=== PATIENT | female | born 1955 | race Caucasian/White ===

== ENCOUNTER 2016-12-22 19:17 | Emergency (ER) | payer MEDICARE ==
[2016-12-22 19:30] VITALS: BP 133/75
--- NOTE | 2016-12-22 19:37 | UC ---
Minor Trauma HPI - HPI Summary HPI Summary: 61 YEAR OLD FEMALE PRESENTS WITH COMPLAINS OF RIGHT ELBOW, HAND, AND WRIST PAIN AFTER A FALL. - History of Current Complaint Chief Complaint: UCTrauma Stated Complaint: ARM,HIP INJURIES FROM FALL Time Seen by Provider: 12/22/16 19:37 Hx Obtained From: Patient Onset/Duration: Sudden Onset Severity Initially: Moderate Severity Currently: Moderate Pain Scale Used: 0-10 Numeric - 6 Mechanism Of Injury: Fall From A Standing Position Aggravating Factor(s): Movement Alleviating Factor(s): Elevation Associated Signs And Symptoms: Positive: Swelling - Allergies/Home Medications Allergies/Adverse Reactions: Allergies Allergy/AdvReac Type Severity Reaction Status Date / Time Amoxicillin Allergy Intermediate Hives Verified 12/22/16 19:30 Minocycline Allergy Intermediate Rash Verified 12/22/16 19:30 Home Medications: Home Medications Lisinopril TAB* [Prinivil TAB*] 5 mg PO DAILY 12/22/16 [History Confirmed ] Tocilizumab [Actemra] 162 mg SC 12/22/16 [History] PMH/Surg Hx/FS Hx/Imm Hx Previously Healthy: Yes - Surgical History Surgical History: Yes Surgery Procedure, Year, and Place: HYSTERECTOMY. right hip - Social History Alcohol Use: None Substance Use Type: None, Prescribed Smoking Status (MU): Never Smoked Tobacco Review of Systems Constitutional: Negative Skin: Negative Eyes: Negative ENT: Negative Respiratory: Negative Cardiovascular: Negative Gastrointestinal: Negative Genitourinary: Negative Motor: Negative Neurovascular: Negative Musculoskeletal: Other: - RIGHT ELBOW, HAND, AND WRIST Neurological: Negative Psychological: Negative All Other Systems Reviewed And Are Negative: Yes Physical Exam Triage Information Reviewed: Yes Vital Signs: Initial Vital Signs Temp 36.6 C 12/22/16 19:24 Pulse 81 12/22/16 19:24 Resp 20 12/22/16 19:24 BP 133/75 12/22/16 19:24 Pulse Ox 98 12/22/16 19:24 Eye Exam: Normal ENT Exam: Normal Dental Exam: Normal Neck exam: Normal Neck: Positive: 1 Respiratory Exam: Normal Cardiovascular Exam: Normal Abdominal Exam: Normal Musculoskeletal: Positive: Other: - RIGHT ELBOW, HAND, AND WRIST SWELLING/PAIN Neurological Exam: Normal Psychological Exam: Normal Skin Exam: Normal Minor Trauma Course/Dx - Differential Dx/Diagnosis Provider Diagnoses: RIGHT ELBOW, HAND, AND WRIST SWELLING/PAIN Discharge - Discharge Plan Condition: Stable Disposition: HOME Prescriptions: Mupirocin 2% OINT* [Bactroban 2 % Oint*] 1 applic TOPICAL BID #1 tube Referrals: Georgiana Fragoso MD [Primary Care Provider] -
--- NOTE | 2016-12-22 20:05 | RAD ---
HISTORY: Fall on outstretched hand , elbow pain COMPARISONS: None VIEWS: 4, Frontal, lateral, and oblique views of the right elbow FINDINGS: BONE DENSITY: Normal. BONES: There is no displaced fracture. JOINTS: There is no arthropathy. There is no posterior supracondylar fat pad to suggest a joint effusion. There is ALIGNMENT: There is no dislocation. SOFT TISSUES: Unremarkable. OTHER FINDINGS: None. IMPRESSION: NO ACUTE OSSEOUS INJURY. IF SYMPTOMS PERSIST, RECOMMEND REPEAT IMAGING.
--- NOTE | 2016-12-22 20:06 | RAD ---
HISTORY: Fall on outstretched hand, hand pain COMPARISONS: November 23, 2016 VIEWS: 4, Frontal, lateral, and oblique views of the right hand FINDINGS: BONE DENSITY: There is diffuse osteopenia. BONES: There is no displaced fracture. JOINTS: There is osteoarthritis of the first CMC joint, radial carpal articulation, interphalangeal joints, and first MCP joint. ALIGNMENT: There is no dislocation. SOFT TISSUES: Unremarkable. OTHER FINDINGS: None. IMPRESSION: 1. OSTEOPENIA. 2. ADVANCED OSTEOARTHRITIS. 3. NO ACUTE OSSEOUS INJURY. THE DEGREE OF OSTEOPENIA MAY MAKE A NONDISPLACED FRACTURE RADIOGRAPHICALLY OCCULT. IF SYMPTOMS PERSIST, RECOMMEND REPEAT IMAGING.
--- NOTE | 2016-12-22 20:09 | RAD ---
HISTORY: Fall on outstretched hand, pain COMPARISONS: None VIEWS: 3, Frontal, lateral, and oblique views of the right wrist FINDINGS: BONE DENSITY: There is diffuse osteopenia. BONES: There is remote posttraumatic deformity to the distal ulna. JOINTS: There is advanced osteoarthritis of the carpus and radiocarpal and ulnar-carpal articulations. ALIGNMENT: There is no dislocation. SOFT TISSUES: Unremarkable. OTHER FINDINGS: None. IMPRESSION: OSTEOPENIA. ADVANCED OSTEOARTHRITIS. NO ACUTE OSSEOUS INJURY. THE DEGREE OF OSTEOPENIA MAY MAKE A NONDISPLACED FRACTURE RADIOGRAPHICALLY OCCULT. IF SYMPTOMS PERSIST, RECOMMEND REPEAT IMAGING.
== END 2016-12-22 20:23 | disposition home or self-care (01) ==
LOC: UCEAST 19:17
DX: M25.521 Pain in right elbow (principal); M79.641 Pain in right hand; M25.531 Pain in right wrist; M25.431 Effusion, right wrist; Z88.1 Allergy status to other antibiotic agents; Z90.710 Acquired absence of both cervix and uterus
CPT/HCPCS: 99213; G0463

== ENCOUNTER 2018-10-05 12:22 | Emergency (ER) | payer MEDICARE, MEDICAID ==
[2018-10-05 12:35] VITALS: BP 135/72
--- NOTE | 2018-10-05 12:55 | UC ---
Respiratory Complaint HPI - HPI Summary HPI Summary: One week of worsening cough. - History of Current Complaint Chief Complaint: UCRespiratory Stated Complaint: COUGH Time Seen by Provider: 10/05/18 12:30 Hx Obtained From: Patient Pain Intensity: 4 Pain Scale Used: 0-10 Numeric Aggravating Factors: Nothing Alleviating Factors: Nothing Associated Signs And Symptoms: Positive: Wheezing. Negative: Dyspnea - Allergies/Home Medications Allergies/Adverse Reactions: Allergies Allergy/AdvReac Type Severity Reaction Status Date / Time amoxicillin Allergy Hives Verified 10/05/18 12:35 minocycline Allergy Rash Verified 10/05/18 12:35 Home Medications: Home Medications Atorvastatin* [Lipitor*] 20 mg PO DAILY 10/05/18 [History Confirmed 10/05/18] Fluticasone NASAL SPRAY 50MCG* [Flonase NASAL SPRAY 50MCG*] 2 spray BOTH NARES DAILY 10/05/18 [History Confirmed 10/05/18] metFORMIN* [Glucophage 500 MG TAB *] 500 mg PO DAILY 10/05/18 [History Confirmed 10/05/18] PMH/Surg Hx/FS Hx/Imm Hx Endocrine History: Diabetes Cardiovascular History: Cardiac Disease GI/ History: Gastroesophageal Reflux - Surgical History Surgical History: Yes Surgery Procedure, Year, and Place: HYSTERECTOMY. right hip - Family History Known Family History: Positive: Other - cancer - Social History Alcohol Use: None Substance Use Type: None Smoking Status (MU): Never Smoked Tobacco Review of Systems All Other Systems Reviewed And Are Negative: Yes Constitutional: Positive: Chills. Negative: Fever Skin: Negative: Rash ENT: Positive: Sinus Congestion - with post nasal drip. Negative: Sore Throat Physical Exam Vital Signs: Initial Vital Signs Temp 97.2 F 10/05/18 12:29 Pulse 88 10/05/18 12:29 Resp 18 10/05/18 12:29 BP 135/72 10/05/18 12:29 Pulse Ox 96 10/05/18 12:29 Diagnostics - Radiology No standard instances Radiology Interpretation Completed By: Radiologist Summary of Radiographic Findings: IMPRESSION: 1. OVERLYING THE RIGHT LOWER LUNG IS A NEW 1.1 CM WELL-CIRCUMSCRIBED DENSITY THAT WAS NOT. IDENTIFIED ON THE JUNE 27, 2017 CHEST X-RAY. THE CLINICAL SIGNIFICANCE OF THIS IS. INDETERMINANT. 2. THE LUNGS ARE OTHERWISE GROSSLY CLEAR. Respiratory Course/Dx - Course Course Of Treatment: Cough started a few days ago after she noticed some post nasal drip. She was concerned it was something else when she noticed wheezing for which she has been using albuterol. Of note is taking immunosuppresants for RA. Coughing is sporadic and nothing makes it better/worse. On exam there was some rales heard in R field. CXR did not show any conslidation but there was a new density noted. Vitals good. For now will tx her cough w/ zpack to cover infectious source, could be viral as well. Post nasal drip can also cause cough so have asked her to take flonase BID. She will follow up with her pcp to obtain CT for the new density found on today's CXR. - Differential Dx/Diagnosis Differential Diagnosis/HQI/PQRI: Bronchitis, CHF, Tuberculosis Provider Diagnosis: Abnormal x-ray, Cough Discharge - Sign-Out/Discharge Documenting (check all that apply): Patient Departure All imaging exams completed and their final reports reviewed: Yes - Discharge Plan Condition: Good Disposition: HOME Prescriptions: Azithromyxin SHASHI (NF) [Z-Shashi (Zithromax) 250 mg tabs #6] 2 tab PO .TODAY, THEN 1 DAILY 5 Days #6 tab Patient Education Materials: Acute Cough (ED) Referrals: Georgiana Fragoso MD [Primary Care Provider] - Additional Instructions: I think your symptoms may be from post nasal drip or perhaps an infectious source for which I'm treating you with antibiotics. But because the XRAY was abnormal I'd like you to follow up with your primary care very soon. - Billing Disposition and Condition Condition: GOOD Disposition: Home
== END 2018-10-05 13:53 | disposition home or self-care (01) ==
LOC: UCEAST 12:22
DX: R91.8 Other nonspecific abnormal finding of lung field (principal); R05 Cough
CPT/HCPCS: 71046; 99212; G0463

== ENCOUNTER → 2018-11-29 14:23 | Emergency (ER) | payer MEDICARE, MEDICAID ==
[~2018-11-29 14:23] MED LIST: Ketorolac INJ* 30 MG/ML 1 ML VIAL IV ONE; Levofloxacin TAB* 250 MG PO ONE; Morphine 4 MG/ML VIAL (1 ml) 4 MG/ML VIAL IV ONE; NS 0.9% 1000 ML** 1,000 ML IV ONE; Ondansetron INJ* 2 MG/ML VIAL IV ONE; Tamsulosin CAP* 0.4 MG PO ONE
--- NOTE | 2018-11-29 14:52 | ED ---
GI/ HPI - HPI Summary HPI Summary: Patient is a 63 y/o F presenting to ED with complaints of bilateral flank pain that is more severe on the left, nausea, and hematuria. Vomiting is denied. She states that she has been having intermittent episodes of pain, but today, since this morning, pain has been more severe and constant. On triage, pain is rated 7 /10, nothing is noted to aggravate/alleviate Sx. She states that she had a UA done and claims there was protein and blood noted in urine. She notes that she had recent UTI. Patient is not on blood thinners. She is scheduled for ultrasound in the next four days. Home medications and allergies are reviewed. - History of Current Complaint Chief Complaint: EDFlankPain Time Seen by Provider: 11/29/18 14:34 Stated Complaint: LOW BACK PAIN PER PT Hx Obtained From: Patient Onset/Duration: Still Present, Worse Since - this morning Timing: Constant - since this morning, Intermittent - past few days Severity: Severe Current Severity: Severe Pain Intensity: 7 Location of Pain: Flank - bilateral Associated Signs and Symptoms: Positive: Nausea, Hematuria, Flank Pain - bilateral. Negative: Vomiting Aggravating Factor(s): Nothing Alleviating Factor(s): Nothing - Allergy/Home Medications Allergies/Adverse Reactions: Allergies Allergy/AdvReac Type Severity Reaction Status Date / Time minocycline Allergy Rash Verified 11/29/18 14:32 PMH/Surg Hx/FS Hx/Imm Hx Endocrine/Hematology History: Reports: Hx Diabetes - type 2 dm Cardiovascular History: Reports: Hx Hypertension Musculoskeletal History: Reports: Hx Rheumatoid Arthritis, Hx Osteoporosis - Cancer History Hx Chemotherapy: No Hx Radiation Therapy: No - Surgical History Surgery Procedure, Year, and Place: HYSTERECTOMY. right hip Infectious Disease History: No Infectious Disease History: Denies: Traveled Outside the [place] in Last 30 Days - Family History Known Family History: Positive: Other - cancer - Social History Alcohol Use: None Substance Use Type: Reports: None Smoking Status (MU): Never Smoked Tobacco Review of Systems Positive: Nausea. Negative: Vomiting Positive: flank pain - bilateral , hematuria All Other Systems Reviewed And Are Negative: Yes Physical Exam - Summary Physical Exam Summary: Appearance: Well appearing, no pain distress Skin: warm, dry, reflects adequate perfusion Head/face: normal Eyes: EOMI, ANDRY ENT: normal Neck: supple, non-tender Respiratory: CTA, breath sounds present Cardiovascular: RRR, pulses symmetrical Abdomen: tenderness at left flank area noted, soft Musculoskeletal: normal, strength/ROM intact Neuro: normal, sensory motor intact, A&Ox3 Triage Information Reviewed: Yes Vital Signs On Initial Exam: Initial Vitals Temp Pulse Resp BP Pulse Ox 98.7 F 84 19 168/105 99 11/29/18 14:29 11/29/18 14:29 11/29/18 14:29 11/29/18 14:29 11/29/18 14:29 Vital Signs Reviewed: Yes Diagnostics - Vital Signs Vital Signs Temp Pulse Resp BP Pulse Ox 11/29/18 14:29 98.7 F 84 19 168/105 99 - Laboratory Result Diagrams: 11/29/18 15:23 11/29/18 15:23 Lab Statement: Any lab studies that have been ordered have been reviewed, and results considered in the medical decision making process. - CT CT ABD/PEL CT Interpretation Completed By: Radiologist Summary of CT Findings: IMPRESSION: 1. At the left hilum there is a 7 mm calcification with ipsilateral left-sided. hydronephrosis. 2. There are 2 hyperattenuating cyst in the left kidney that can be further characterized. This report is only to be considered final once signed by the Provider(s) as displayed in the. with a nonemergent ultrasound. 3. There are additional chronic, degenerative and iatrogenic findings described in the. body the report that are unlikely related to the patient's current presentation. THIS REPORT WAS REVIEWED BY DR. LINK. Re-Evaluation - Re-Evaluation First Eval Re-Evaluation Time: 17:26 Comment: Results of labs and tests were discussed with the patient. Patient reports that she wants to be discharged to home with antibiotics. She states she will follow up with PCP and urologist within three days. Strict return precautions given, advised to return if she develops a fever, chills, or worsening of symptoms. Patient understands and agrees. GIGU Course/Dx - Course Course Of Treatment: Patient is a 63 y/o F presenting to ED with complaints of bilateral flank pain that is more severe on the left, nausea, and hematuria. Vomiting is denied. She states that she has been having intermittent episodes of pain, but today, since this morning, pain has been more severe and constant. On triage, pain is rated 7/10, nothing is noted to aggravate/alleviate Sx. She states that she had a UA done and claims there was protein and blood noted in urine. She notes that she had recent UTI. Patient is not on blood thinners. On physical exam, left flank tenderness is noted. Bloodwork and UA obtained. During ED course, patient received fluids, Zofran 4 mg IV, morphine 4 mg IV, and toradol [address] ABD/PEL IMPRESSION: 1. At the left hilum there is a 7 mm calcification with ipsilateral left-sided. hydronephrosis. 2. There are 2 hyperattenuating cyst in the left kidney that can be further characterized. This report is only to be considered final once signed by the Provider(s) as displayed in the. with a nonemergent ultrasound. 3. There are additional chronic, degenerative and iatrogenic findings described in the. body the report that are unlikely related to the patient's current presentation. Results of labs and tests were discussed with the patient. Patient reports that she wants to be discharged to home with antibiotics. She states she will follow up with PCP and urologist within three days. Strict return precautions given, advised to return if she develops a fever, chills, or worsening of symptoms. Patient understands and agrees. pt refused to be transferred to a different hospital for urology services said she will try abx and see urologist on saturday. - Diagnoses Differential Diagnoses - Female: Diverticulitis, Renal Colic, Urinary Tract Infection, Ureteral Calculi Provider Diagnoses: Renal calculi, UTI (urinary tract infection), History of diabetes mellitus Discharge - Sign-Out/Discharge Documenting (check all that apply): Patient Departure - discharge Patient Received Moderate/Deep Sedation with Procedure: No - Discharge Plan Condition: Stable Disposition: HOME Prescriptions: Levofloxacin TAB* [Levaquin TAB*] 750 mg PO DAILY #6 tab Tamsulosin HCl [Flomax] 0.4 mg PO ONCE #14 cap.er.24h Patient Education Materials: Kidney Stones (ED), Urinary Tract Infection in Women (ED) Referrals: Georgiana Fragoso MD [Primary Care Provider] - 3 Days Norm Myles MD [Medical Doctor] - 3 Days Additional Instructions: PLEASE RETURN TO ED FOR ANY NEW OR WORSENING SYMPTOMS. FOLLOW-UP WITH YOUR PRIMARY CARE PHYSICIAN AND UROLOGIST WITHIN THREE DAYS. - Billing Disposition and Condition Condition: STABLE Disposition: Home - Attestation Statements Document Initiated by Joseibnadira: Yes Documenting Scribe: TASHA ROMERO Provider For Whom Scribe is Documenting (Include Credential): ZOILA LINK MD Scribe Attestation: ITASHA, scribed for ZOILA LINK MD on 11/29/18 at 1808. Scribe Documentation Reviewed: Yes Provider Attestation: The documentation as recorded by the TASHA davey accurately reflects the service I personally performed and the decisions made by me, ZOILA LINK MD Status of Scribe Document: Viewed
[2018-11-29 15:29] LABS: ABS Eosinophils 0.2 10^3/ul (0-0.6); ABS Lymphocytes 2.4 10^3/ul (1.0-4.8); ABS Monocytes 0.7 10^3/ul (0-0.8); ABS Neutrophils 4.4 10^3/ul (1.5-7.7); Eosinophil % 2.5 %; Hematocrit 39 % (35-47); Hemoglobin 13.3 g/dL (12.0-16.0); Lymphocyte % 31.3 %; Mean Corpuscular HGB Conc 34 g/dL (31-36); Mean Corpuscular Hemoglobin 31 pg (27-31); Mean Corpuscular Volume 89 fL (80-97); Platelet Count 201 10^3/uL (150-450); Red Blood Count 4.33 10^6 /uL (3.70-4.87); Red Cell Distribution Width 13 % (10-15); White Blood Count 7.8 10^3/uL (3.5-10.8)
--- OUTSIDE RECORDS SUMMARY | 2018-11-29 15:33 | XMS REPORT | Continuity of Care Document ---
:1955 External Reference #:[id number] Author Name Sobia Haji O.D. Address [address] [place] [address] Care Team Providers Name Role Phone Georgiana Fragoso M.D. Primary Care Physician Unavailable Payers Date Identification Numbers Payment Provider Subscriber Policy Number: [id number] Medicare - [facility] Nupur Ochoa PayID: [id number] [address] [place] [address] Policy Number: [id number] Medicaid Nupur Ochoa PayID: [id number] [address] [place] [address] Problems Active Problems Provider Date Rheumatoid arthritis Onset: Type 2 diabetes mellitus Onset: Essential hypertension Onset: Reflux Onset: Sleep apnea Onset: Taking medication Niru Rivera O.D. Onset: 09/21/2014 Ocular hypertension Niru Rivera O.D. Onset: 09/21/2014 Nuclear senile cataract Niru Rivera O.D. 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 Onset: 08/23/2015 Combined form of senile cataract Niru Rivera O.D. Onset: 08/23/2015 Presbyopia Sobia Haji O.D. Onset: 01/08/2018 Bilateral primary open angle glaucoma Sobia Haji O.D. 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 night Coq10 Unknown 100mg Capsules Metformin HCL Unknown 500mg Tablets Actemra Ankur, Zsofia 162mg/0.9ML Soln Prefill APPLICATION RELEASE MANAGER Syringe Lisinopril [place] Georgiana 2.5mg Tablets M.D. Calcium 1200 daily Unknown [id number] Chewtabs Glucosamine Sulfate Unknown Maximum Potency 1000mg Capsules Tramadol HCL Take 1 Tablet Unknown 50mg Tablets By Mouth 4 Times A Day as Needed Omeprazole Take One Unknown 20mg Capsules DR Capsule By Mouth Every Day Vitamin D (Ergocalciferol) Take One Unknown Capsule By [id number] Capsules Mouth Once A Month Fluoxetine HCL Simbafarhat Georgiana 20mg Capsules M.D. Hydroxychloroquine Sulfate Ankur, Zsofia 200mg APPLICATION RELEASE MANAGER Tablets Meloxicam Ankur, Zsofia 7.5mg Tablets APPLICATION RELEASE MANAGER History Medications Co Q 10 Niru Rivera, 08/22/2015 - ?mg Capsules O.D. Unknown Hydrochlorothiazide Simbafarhat Georgiana - 12.5mg Tablets M.D. 09/22/2016 Humira Pen Ankur, Zsofia - 40mg/0.8ML PNKT APPLICATION RELEASE MANAGER 03/30/2017 Econazole Nitrate Apply To Affected Unknown - 1% Cream Toes Twice A Day 08/22/2015 Multi Vitamin Daily Unknown - Tablets Unknown Multivital Unknown - Tablets 02/21/2016 Nasonex Unknown - 50mcg/Act Suspension Unknown Lipitor Unknown - 10mg Tablets 04/25/2018 Procedures Date Code Description Status 08/14/2018 70537 Est Patient Intermediate Exam Completed 05/29/2018 79709 Scanning Computerized Ophthalmic Diagnostic Imag Posterior Completed Seg On 05/29/2018 07864 Est Patient Intermediate Exam Completed 05/02/2018 31409 Est Patient Intermediate Exam Completed 01/08/2018 23707 Determination Of Refractive State Completed 10/28/2017 67378 Scanning Computerized Opthalmic Diagnostic Posterior Seg Completed Retina 10/28/2017 30458 Visual Field Exam Extended Completed 10/28/2017 76669 Gonioscopy Completed 10/28/2017 69650 Est Patient Comprehensive Exam Completed 04/01/2017 08159 Est Patient Comprehensive Exam Completed 04/01/2017 82018 Visual Field Exam Extended Completed 04/01/2017 80620 Scanning Computerized Ophthalmic Diagnostic Imag Posterior Completed Seg On 09/27/2016 30903 Scanning Computerized Opthalmic Diagnostic Posterior Seg Completed Retina 09/27/2016 37543 Est Patient Comprehensive Exam Completed 02/22/2016 62820 Visual Field Exam Extended Completed 02/22/2016 70428 Est Patient Comprehensive Exam Completed 08/23/2015 03359 Est Patient Comprehensive Exam Completed 09/21/2014 65510 Est Patient Comprehensive Exam Completed 09/21/2014 35811 Visual Field Exam Extended Completed 03/22/2014 37675 Determination Of Refractive State Completed 03/22/2014 75756 Est Patient Comprehensive Exam Completed 06/23/2013 59203 Est Patient Comprehensive Exam Completed 12/19/2012 98550 Determination Of Refractive State Completed 12/19/2012 20109 Est Patient Comprehensive Exam Completed 06/20/2012 09480 Est Patient Intermediate Exam Completed 12/18/2011 22893 Est Patient Comprehensive Exam Completed 12/23/2010 67015 Determination Of Refractive State Completed 12/23/2010 73004 Est Patient Comprehensive Exam Completed 12/23/2010 57933 Pachymetry Completed 12/14/2008 66380 Determination Of Refractive State Completed 12/14/2008 74550 Est Patient Comprehensive Exam Completed 06/16/2008 28573 Est Patient Intermediate Exam Completed 12/15/2007 43007 Determination Of Refractive State Completed 12/15/2007 47940 New Patient Comprehensive Exam Completed Encounters Type Date Location Provider Dx Diagnosis Office Visit 06/24/2009 Niru Partida, V58.69 Medications Long 11:00a , pc O.Delfino Term (Current) Use Encounter 714.0 Rheumatoid Arthritis Plan of Treatment 11/27/2018 - Sobia Haji O.D.H40.1131 Primary open-angle glaucoma, bilateral, mild stageComments:Your glaucoma is stable at this time.Your eye pressure is within an acceptable range, and your testing does not show any Glaucoma related changes at this time. Please continue your treatment.Follow up: 4 Month Follow Up OCT ON Visual Field, 30-2 You can expect to have your eyes dilated at your next visit. If Dr. Haji orders any additional testing, it may require extra time. We recommend that youbring sunglasses, as dilation drops often make you light sensitive until they wear off. We always recommend you bring someone to drive you home if you are uncomfortable driving with your eyes dilated. If you have any questions before your next visit, feel free to call our office at .
[2018-11-29 15:38] LABS: Activated Partial Thrombo Time 29.5 seconds (26.0-38.0); INR 0.95 (0.82-1.09)
[2018-11-29 15:44] LABS: Urine Appearance Clear; Urine Bacteria Absent (Absent); Urine Bilirubin Negative (Negative); Urine Blood 3+ (Negative); Urine Color Yellow; Urine Glucose Negative (Negative); Urine Ketones Negative (Negative); Urine Nitrite Negative (Negative); Urine Protein 1+(30 mg/dL) (Negative); Urine Red Blood Cell 3+(>10/hpf) (Absent); Urine Specific Gravity 1.018 (1.010-1.030); Urine Squamous Epithelial Cell Present (Absent); Urine Urobilinogen Negative (Negative); Urine White Blood Cell 3+(>20/hpf) (Absent)
[2018-11-29 15:49] LABS: Albumin 4.4 g/dL (3.2-5.2); Albumin/Globulin Ratio 1.7 (1-3); BUN/Creatinine Ratio 20.7 (8-20); Calcium 9.3 mg/dL (8.6-10.3); EGFR African American 60.5 (>60); Globulin 2.6 g/dL (2-4); Potassium 3.9 mmol/L (3.5-5.0); Total Bilirubin 0.8 mg/dL (0.2-1.0)
[2018-11-29 19:49] VITALS: BP 148/94
== END | disposition home or self-care (01) ==
LOC: ED 14:23
DX: N13.2 Hydronephrosis with renal and ureteral calculous obstruction (principal); N39.0 Urinary tract infection, site not specified; E11.9 Type 2 diabetes mellitus without complications; I10 Essential (primary) hypertension; M06.9 Rheumatoid arthritis, unspecified; Z88.1 Allergy status to other antibiotic agents; N28.1 Cyst of kidney, acquired
CPT/HCPCS: 36415; 74176; 80053; 81003; 81015; 83605; 83690; 85025; 85610; 85730; 87086; 96361; 96374; 96375; 99282; A9270-GY; J1885; J2270; J2405

== ENCOUNTER 2018-12-01 02:11 | Emergency (ER) | payer MEDICARE, MEDICAID ==
[2018-12-01] MEDS ORDERED: Morphine 4 MG/ML VIAL (1 ml) 4 MG/ML VIAL IM ONE (02:34)
[2018-12-01] MEDS ORDERED: PROCHLORPERAZINE INJ 5 MG/ML 2 ML VIAL IM ONE (02:34)
--- NOTE | 2018-12-01 02:44 | ED ---
GI/ HPI - HPI Summary HPI Summary: This pt is a 63 y/o F presenting to [facility] with a CC of L flank pain that has been worsening since 2912/01/18. She states that the pain started at around 199911/30/18 and progressively gotten worse. She states that the pain was increased while she was laying down trying to sleep. She stated no alleviating factors. She denies any fevers, chills, N/V, abdominal pain, CP, SOB, and headaches. She was recently here and was diagnosed with renal calculi and UTI. - History of Current Complaint Chief Complaint: EDFlankPain Time Seen by Provider: 12/01/18 02:22 Stated Complaint: KIDNEY STONE PAIN PER PT Hx Obtained From: Patient Onset/Duration: Started Hours Ago - 2099, Still Present, Worse Since - 29 Timing: Constant Severity: Mild Current Severity: Moderate Pain Intensity: 5 Location of Pain: Flank - L Associated Signs and Symptoms: Positive: Flank Pain - L. Negative: Nausea, Vomiting, Fever, Chills, Abdominal Pain, Chest Pain - Allergy/Home Medications Allergies/Adverse Reactions: Allergies Allergy/AdvReac Type Severity Reaction Status Date / Time minocycline Allergy Rash Verified 12/01/18 02:14 Home Medications: Home Medications Ergocalciferol (Vitamin D2) [Drisdol] 50,000 unit PO MONTHLY 12/01/18 [History Confirmed 12/01/18] Glucosamine Sulfate 500 mg PO DAILY 12/01/18 [History Confirmed 12/01/18] Meloxicam [Mobic] 7.5 mg PO DAILY 12/01/18 [History Confirmed 12/01/18] Tamsulosin HCl [Flomax] 0.4 mg PO DAILY 12/01/18 [History Confirmed 12/01/18] Travoprost 0.004% (NF) [Travatan Z (NF)] 1 drop BOTH EYES BEDTIME 12/01/18 [ History Confirmed 12/01/18] Ubidecarenone [Coq10 Gummies Adult] 50 mg PO DAILY 12/01/18 [History Confirmed 12/01/18] PMH/Surg Hx/FS Hx/Imm Hx Previously Healthy: No Endocrine/Hematology History: Reports: Hx Diabetes - type 2 dm Cardiovascular History: Reports: Hx Hypertension Musculoskeletal History: Reports: Hx Rheumatoid Arthritis, Hx Osteoporosis - Cancer History Hx Chemotherapy: No Hx Radiation Therapy: No - Surgical History Surgery Procedure, Year, and Place: HYSTERECTOMY. right hip Infectious Disease History: Yes Infectious Disease History: Denies: Traveled Outside the [place] in Last 30 Days - Family History Known Family History: Positive: Other - cancer - Social History Alcohol Use: None Substance Use Type: Reports: None Smoking Status (MU): Never Smoked Tobacco Review of Systems Negative: Fever, Chills Negative: Chest Pain Negative: Abdominal Pain, Vomiting, Nausea Positive: flank pain - L Neurological: Negative - dizziness All Other Systems Reviewed And Are Negative: Yes Physical Exam - Summary Physical Exam Summary: VITAL SIGNS: Reviewed. GENERAL: Patient is a well-developed and nourished Female who is lying comfortable in the stretcher. Patient is not in any acute respiratory distress. HEAD AND FACE: No signs of trauma. No ecchymosis, hematomas or skull depressions. No sinus tenderness. EYES: PERRLA, EOMI x 2, No injected conjunctiva, no nystagmus. EARS: Hearing grossly intact. Ear canals and tympanic membranes are within normal limits. MOUTH: Oropharynx within normal limits. NECK: Supple, trachea is midline, no adenopathy, no JVD, no carotid bruit, no c- spine tenderness, neck with full ROM CHEST: Symmetric, no tenderness at palpation LUNGS: Clear to auscultation bilaterally. No wheezing or crackles. CVS: Regular rate and rhythm, S1 and S2 present, no murmurs or gallops appreciated. ABDOMEN: Soft, non-tender. No signs of distention. No rebound no guarding, and no masses palpated. Bowel sounds are normal. EXTREMITIES: FROM in all major joints, no edema, no cyanosis or clubbing. NEURO: Alert and oriented x 3. No acute neurological deficits. Speech is normal and follows commands. SKIN: Dry and warm Triage Information Reviewed: Yes Vital Signs On Initial Exam: Initial Vitals Temp Pulse Resp BP Pulse Ox 97 F 77 15 171/89 98 12/01/18 02:12 12/01/18 02:12 12/01/18 02:12 12/01/18 02:12 12/01/18 02:12 Vital Signs Reviewed: Yes Diagnostics - Vital Signs Vital Signs Temp Pulse Resp BP Pulse Ox 12/01/18 02:12 97 F 77 15 171/89 98 - Laboratory Lab Statement: Any lab studies that have been ordered have been reviewed, and results considered in the medical decision making process. GIGU Course/Dx - Course Course Of Treatment: This pt is a 63 y/o F presenting to [facility] with a CC of L flank pain that has been worsening since 2912/01/18. She states that the pain started at around 199911/30/18 and progressively gotten worse. She states that the pain was increased while she was laying down trying to sleep. Her PE has no abnormal factors. She will be discharged home with instructions to call her Urologist in the morning. Her Dx was renal calculi. - Diagnoses Differential Diagnoses - Female: Renal Calculi Provider Diagnoses: Renal calculi Discharge - Sign-Out/Discharge Documenting (check all that apply): Patient Departure - discharge Patient Received Moderate/Deep Sedation with Procedure: No - Discharge Plan Condition: Stable Disposition: HOME Patient Education Materials: Kidney Stones (ED) Referrals: Georgiana Fragoso MD [Primary Care Provider] - 2 Days Additional Instructions: Call your Urologist in the morning. Follow up with your primary care physician within 2-3 days. Return to the emergency department for any new or worsening symptoms. - Attestation Statements Document Initiated by Scribe: Yes Documenting Scribe: Bi Peters Provider For Whom Scribe is Documenting (Include Credential): Nikki Bhatt MD Scribe Attestation: Bi Malin scribed for Nikki Bhatt MD on 12/01/18 at 0438. Status of Scribe Document: Ready
[2018-12-01 05:40] VITALS: BP 138/70
== END 2018-12-01 05:40 | disposition home or self-care (01) ==
LOC: ED 02:11
DX: N20.0 Calculus of kidney (principal); Z87.440 Personal history of urinary (tract) infections; E11.9 Type 2 diabetes mellitus without complications; I10 Essential (primary) hypertension; M06.9 Rheumatoid arthritis, unspecified; M19.90 Unspecified osteoarthritis, unspecified site; Z88.1 Allergy status to other antibiotic agents
CPT/HCPCS: 96372; 99283; J0780; J2270

== ENCOUNTER → 2018-12-03 08:57 | Day surgery (SDC) | payer MEDICARE, MEDICAID ==
--- NOTE | 2018-12-02 15:11 | HP ---
CC: Dr. Fragoso; Sil Pascual NP; Dr. Severino Zapata ADMITTING HISTORY AND PHYSICAL: DATE OF ADMISSION: 12/03/18 ADMITTING DIAGNOSES: 1. Left hydronephrosis. 2. Left renal calculi. PLANNED PROCEDURE: Left retrograde and left stent insertion (to be followed in the near future by li thotripsy). SURGEON: Dr. Zapata. HISTORY OF PRESENT ILLNESS: Nupur Ochoa is a 63-year-old lady who initially had gross hematuria a couple of weeks ago. This subsequently resolved and she then had an episode of severe left flank p ain requiring a trip to the emergency room. Imaging revealed a 7 mm calculus which appears to be loca yesica in the left renal pelvis or ureteropelvic junction causing left hydronephrosis with an additional left lower pole calculus. She is now being brought in for left stent insertion to be followed in near future by lithotripsy. PAST MEDICAL HISTORY: Significant for: 1. Rheumatoid arthritis. 2. Diabetes mellitus. 3. Hypertension. 4. High cholesterol. PAST SURGICAL HISTORY: Significant for cholecystectomy, right total hip replacement, and hysterectom y. MEDICATIONS ON ADMISSION: 1. Actemra injection once a week self-injection. 2. Omeprazole 20 mg daily. 3. Fluoxetine 5 mg daily. 4. Lisinopril 2.5 mg daily. 5. Metformin 500 mg twice a day. 6. Meloxicam daily. 7. Plaquenil daily. 8. Lipitor 1 tablet daily. ALLERGIES AND INTOLERANCES: MINOCYCLINE and METHOTREXATE. FAMILY HISTORY: Negative for stones. SOCIAL HISTORY: Smoking history: She is a nonsmoker. REVIEW OF SYSTEMS: She is otherwise in fairly good health. She denies any chest pain or shortness o f breath. PHYSICAL EXAMINATION GENERAL: Reveals a pleasant, middle-aged lady. VITAL SIGNS: Blood pressure is 128/86, pulse 82 per minute and regular, temperature 96.5, oxygen sat uration 98% on room air. LUNGS: Clear bilaterally. CARDIOVASCULAR: Regular rate and rhythm. S1, S2. ABDOMEN: Soft with mild left flank tenderness. IMPRESSION: I reviewed the labs, imaging, and the urine culture (which was negative) and had a deta iled discussion with Ms. Ochoa regarding the left renal calculi and the proposed procedure of stent insertion to be followed by lithotripsy. All her questions were answered. PLAN: Left retrograde and left stent insertion to be followed in the near future by shockwave lithot norbert. [id number]/[facility] #: [id number]
[~2018-12-03 08:57] MED LIST changes: +Acetaminophen TAB* 325 MG ONE; +Acetaminophen TAB* 325 MG PO ONE; +Buffered Lidocaine 1% SYRIN* 1 ML/SYRINGE INTRADERM ONE; +Dexamethasone IV* 4 MG/ML 1 ML (4 MG) ONE; +Famotidine IV* 10 MG/ML 2 ML (20 mg) ONE; +Gentamicin ADULT (*) 160 MG in NS 0.9% 100 ML* 100 ML IVPB ONE; +Gentamicin ADULT (*) 40 MG/ML VIAL (2 ML VIAL = 80 MG) IM ONE; +Gentamicin ADULT (*) 40 MG/ML VIAL (2 ML VIAL = 80 MG) ONE; +HYDROcodone/ACETAMIN 5-325 MG* 1 TAB PO PRN; +Iohexol 180 (CONTRAST) 10 ML SDV IV ONE; +KETAMINE HCL* 50 MG/ML 10 ML VIAL ONE; -Ketorolac INJ* 30 MG/ML 1 ML VIAL IV ONE; +Lactated Ringers 1000 ML Bag* 1,000 ML IV SCH; -Levofloxacin TAB* 250 MG PO ONE; +Lidocaine 2% PF * 5 ML VIAL ONE; +Midazolam* 1 MG/ML 2 ML VIAL (2 MG) ONE; -Morphine 4 MG/ML VIAL (1 ml) 4 MG/ML VIAL IV ONE; -NS 0.9% 1000 ML** 1,000 ML IV ONE; +Naloxone* 0.4 MG/ML 1 ML VIAL IV PRN; -Ondansetron INJ* 2 MG/ML VIAL IV ONE; +Ondansetron INJ* 2 MG/ML VIAL IV PRN; +Ondansetron INJ* 2 MG/ML VIAL ONE; +PROCHLORPERAZINE INJ 5 MG/ML 2 ML VIAL IV PRN; +Propofol* 10 MG/ML 20 ML BTL ONE; -Tamsulosin CAP* 0.4 MG PO ONE; +cefTRIAXone(*) 2 GM ADDV.VIAL IVPB ONE; +diPHENhydraMINE IV* 50 MG/ML 1 ml VIAL (BENADRYL) ONE; +fentaNYL* 50 MCG/ML 2 ML VIAL (100 MCG VIAL) IV PRN; +fentaNYL* 50 MCG/ML 2 ML VIAL (100 MCG VIAL) ONE
--- NOTE | 2018-12-03 12:55 | OP ---
CC: Dr. Georgiana Fragoso * DATE OF OPERATION: 12/03/18 - [facility] DATE OF : 59 SURGEON: Dr. Zapata. ANESTHESIOLOGIST: Dr. Watson. ANESTHESIA: Intravenous sedation. PRE-OP DIAGNOSES: Left renal calculi and left hydronephrosis. POST-OP DIAGNOSES: Left renal calculi and left hydronephrosis. OPERATIVE PROCEDURES: Cystoscopy, left retrograde pyelogram, left stent insertion. COMPLICATIONS: None. STENT USED: A 7-Turkmen stent, left ureter. INDICATIONS: Nupur Ochoa is a 63-year-old lady who has had intermittent left flank pain secondary to an intermittently obstructing calculus in the left renal pelvis. She is being brought in for left stent insertion to be followed in the near future by lithotripsy. FINDINGS: Two left-sided renal calculi, one located within the renal pelvis and one in the lower pole of the left kidney. POSTOPERATIVE CONDITION: Stable. DESCRIPTION OF PROCEDURE: After induction of intravenous sedation, the patient was placed in the dorsal lithotomy position. Sequential compression devices were in place and functioning. Initial cystoscopy revealed normally located right and left ureteral orifices. At the junction of the posterior bladder wall and dome, there was a small area where the mucosa was slightly thickened and of a slightly different color, although it did not look suspicious or did not resemble the mucosa of a tumor. The remainder of the bladder was unremarkable. A guidewire was introduced into the left ureter. I could visualize the radiopaque calculi on fluoroscopy and retrograde pyelogram revealed very mild fullness of the left collecting system. A 7- Turkmen stent was introduced and positioned under fluoroscopy with good proximal and distal positioning obtained. The proximal coil of the stent was partly uncoiled, but was draining well at the end of the procedure. Bladder was emptied. The patient tolerated the procedure satisfactorily and was transferred back to the recovery area in stable condition. [id number]/[facility] #: [id number] [facility]
[2018-12-03 13:14] VITALS: BP 171/95
== END | disposition home or self-care (01) ==
LOC: OR 08:57
PROVIDERS: ATTEND Urology
DX: N13.2 Hydronephrosis with renal and ureteral calculous obstruction (principal); M06.9 Rheumatoid arthritis, unspecified; E11.9 Type 2 diabetes mellitus without complications; Z79.84 Long term (current) use of oral hypoglycemic drugs; I10 Essential (primary) hypertension; E78.00 Pure hypercholesterolemia, unspecified; K21.9 Gastro-esophageal reflux disease without esophagitis; F41.8 Other specified anxiety disorders
CPT/HCPCS: 74420; A9270-GY; C1876; J0696; J1100; J1200; J1580; J2250; J2405; J2704; J3010

== ENCOUNTER 2018-12-15 06:38 | Day surgery (SDC) | payer MEDICARE, MEDICAID ==
[~2018-12-15 06:38] MED LIST changes: -Acetaminophen TAB* 325 MG ONE; -Acetaminophen TAB* 325 MG PO ONE; -Dexamethasone IV* 4 MG/ML 1 ML (4 MG) ONE; +Famotidine IV* 10 MG/ML 2 ML (20 mg) IV ONE; -Famotidine IV* 10 MG/ML 2 ML (20 mg) ONE; -Gentamicin ADULT (*) 160 MG in NS 0.9% 100 ML* 100 ML IVPB ONE; -Gentamicin ADULT (*) 40 MG/ML VIAL (2 ML VIAL = 80 MG) IM ONE; -Gentamicin ADULT (*) 40 MG/ML VIAL (2 ML VIAL = 80 MG) ONE; -HYDROcodone/ACETAMIN 5-325 MG* 1 TAB PO PRN; -Iohexol 180 (CONTRAST) 10 ML SDV IV ONE; -KETAMINE HCL* 50 MG/ML 10 ML VIAL ONE; -Lidocaine 2% PF * 5 ML VIAL ONE; -Midazolam* 1 MG/ML 2 ML VIAL (2 MG) ONE; -Naloxone* 0.4 MG/ML 1 ML VIAL IV PRN; -Ondansetron INJ* 2 MG/ML VIAL IV PRN; -Ondansetron INJ* 2 MG/ML VIAL ONE; -PROCHLORPERAZINE INJ 5 MG/ML 2 ML VIAL IV PRN; -Propofol* 10 MG/ML 20 ML BTL ONE; -cefTRIAXone(*) 2 GM ADDV.VIAL IVPB ONE; -diPHENhydraMINE IV* 50 MG/ML 1 ml VIAL (BENADRYL) ONE; -fentaNYL* 50 MCG/ML 2 ML VIAL (100 MCG VIAL) IV PRN; -fentaNYL* 50 MCG/ML 2 ML VIAL (100 MCG VIAL) ONE
[2018-12-15] MEDS ORDERED: Famotidine IV* 10 MG/ML 2 ML (20 mg) ONE (07:07)
[2018-12-15] MEDS ORDERED: cefTRIAXone(*) 2 GM ADDV.VIAL IVPB ONE (07:07)
[2018-12-15] MEDS ORDERED: Midazolam* 1 MG/ML 2 ML VIAL (2 MG) ONE (08:05)
[2018-12-15] MEDS ORDERED: fentaNYL* 50 MCG/ML 2 ML VIAL (100 MCG VIAL) ONE (08:05)
[2018-12-15] MEDS ORDERED: Lidocaine 2% PF * 5 ML VIAL ONE ×2 (08:56→11:51)
[2018-12-15] MEDS ORDERED: Propofol* 10 MG/ML 20 ML BTL ONE (08:56)
[2018-12-15] MEDS ORDERED: Ondansetron INJ* 2 MG/ML VIAL ONE (08:56)
[2018-12-15] MEDS ORDERED: Metoclopramide IV* 5 MG/ML 2 ML VIAL ONE (08:56)
[2018-12-15] MEDS ORDERED: EPHEDrine (Pressors)* 50 MG/ML VIAL ONE (09:31)
[2018-12-15] MEDS ORDERED: Phenylephrine 40 MCG/ML SYRINGE ONE (09:32)
[2018-12-15] MEDS ORDERED: DiMENhydriNATE IV* 50 MG/ML VIAL IV PUSH PRN (09:56)
[2018-12-15] MEDS ORDERED: Naloxone* 0.4 MG/ML 1 ML VIAL IV PRN (09:56)
[2018-12-15] MEDS ORDERED: fentaNYL* 50 MCG/ML 2 ML VIAL (100 MCG VIAL) IV PRN (09:56)
[2018-12-15 11:19] VITALS: BP 142/85
--- NOTE | 2018-12-15 12:40 | OP ---
CC: Dr. Georgiana Fragoso * DATE OF OPERATION: 12/15/18 - [facility] DATE OF : 59 SURGEON: Dr. Zapata. ANESTHESIOLOGIST: Dr. Tyson. ANESTHESIA: General. PRE-OP DIAGNOSIS: Left renal calculi. POST-OP DIAGNOSIS: Left renal calculi. OPERATIVE PROCEDURE: Shock wave lithotripsy, left renal calculi. COMPLICATIONS: None. POSTOPERATIVE CONDITION: Stable. OPERATIVE FINDINGS: Left renal calculi. INDICATIONS: Nupur Ochoa is a 63-year-old lady who had undergone urgent left stent insertion for a obstructing calculus in the left ureteropelvic junction. In addition, she had a second calculus in the lower pole of the left kidney. After stent insertion, both calculi are now located in the lower pole and she is now being brought in for lithotripsy. DESCRIPTION OF PROCEDURE: After induction of general anesthesia, the patient was placed on the lithotripsy table in supine position. The two calculi, which were both in the mid to lower pole area, were identified on fluoroscopy. Shock wave lithotripsy was commenced at a rate of 60 shocks per minute. After the initial 300 shocks, there was a pause in lithotripsy for several minutes in an effort to minimize any potential trauma to the kidney. Lithotripsy was then resumed and a total of 2400 shocks were distributed between the two stones. Adequate fragmentation was observed. The patient tolerated the procedure satisfactorily and was transferred back to the recovery area in stable condition. [id number]/[facility] #: [id number] [facility]
== END 2018-12-15 12:00 | disposition home or self-care (01) ==
LOC: OR 06:38
PROVIDERS: ATTEND Urology
DX: N20.0 Calculus of kidney (principal); N13.30 Unspecified hydronephrosis; M06.9 Rheumatoid arthritis, unspecified; E11.9 Type 2 diabetes mellitus without complications; I10 Essential (primary) hypertension; E78.00 Pure hypercholesterolemia, unspecified
CPT/HCPCS: 74018; J0696; J2250; J2405; J2704; J2765; J3010

== ENCOUNTER → 2019-02-03 08:27 | Emergency (ER) | payer MEDICARE, MEDICAID ==
[~2019-02-03 08:27] MED LIST changes: -Buffered Lidocaine 1% SYRIN* 1 ML/SYRINGE INTRADERM ONE; -Famotidine IV* 10 MG/ML 2 ML (20 mg) IV ONE; +Famotidine IV* 10 MG/ML 2 ML (20 mg) IV SLOW PU ONE; +Ketorolac INJ* 30 MG/ML 1 ML VIAL IV PUSH ONE; +Lactated Ringers 1000 ML Bag* 1,000 ML IV ONE; -Lactated Ringers 1000 ML Bag* 1,000 ML IV SCH; +Ondansetron INJ* 2 MG/ML VIAL IV ONE
--- OUTSIDE RECORDS SUMMARY | 2019-02-03 08:39 | XMS REPORT | Continuity of Care Document ---
:1955 External Reference #:[id number] Author Name SHAHEEN Allen (transmitted by agent of provider Delphine Villanueva) Address [address] [place] [address] Care Team Providers Name Role Phone Georgiana Fragoso MD - Internal Medicine Care Team Information Leaflet Or Newspaper Deliverer Sparkle Espinoza MD - Family Medicine Care Team Information Leaflet Or Newspaper Deliverer [phone] Problems Active Problems Provider Date Rheumatoid arthritis Andi Coughlin M.D. Onset: 12/27/2011 Medications Snf (Current) Use Encounter Andi Coughlin M.D. Onset: Taking medication SHAHEEN Allen Onset: 05/21/2014 Prosthetic arthroplasty of the hip Nory Strong M.D. Onset: 05/16/2015 Social History Type Date Description Comments Sex Unknown Tobacco Use Start: Unknown Never Smoked Cigarettes Smoking Status Reviewed: 01/16/19 Never Smoked Cigarettes ETOH Use Denies alcohol use Tobacco Use Start: Unknown Patient has never smoked Allergies, Adverse Reactions, Alerts Active Allergies Reaction Severity Comments Date Minocycline 10/19/2011 Medications Active Medications SIG Qnty Indications Ordering Date Provider Shingrix 2 doses 6 month 2units Z23 Mauraofijono 50mcg/0.5ML apart SHAHEEN Pascual 9 Suspension Rec Actemra Inject One Syringe 4units M06.09 Sekou 162mg/0.9ML Soln Subcutaneously Javier Malave 8 Prefill Syringe Every Week. Refrigerated. Meloxicam take 1 tablet by 90tabs M06.09 Mauraofia 7.5mg Tablets mouth every day as SHAHEEN Pascual 6 needed Hydroxychloroquine Take 2 Tablet By 90tabs M06.09 Mauraofijono 02/24/ Sulfate Mouth Daily With SHAHEEN Pascual 3 200mg Tablets Food Or Milk For Arthritis Fluoxetine HCL 1 by mouth every Unknown 10mg Capsules day with 40 mg for 0 total of 50 mg daily Metformin HCL Take 1 Tablet By Unknown 500mg Tablets Mouth Every Day 0 Fluoxetine HCL One capsule PO with [place], 40mg Capsules 10 mg for total of MD Georgiana 0 50 Mg Travatan Z Raissa, 0.004% Solution Sobia, OD 0 Tramadol HCL 1 tablet qid as Unknown 50mg Tablets needed 0 Nasonex Instill 2 Sprays Unknown 50mcg/Act Suspension Each Nostril Every 0 Day prn Lisinopril Take 1 Tablet By Unknown 2.5mg Tablets Mouth Every Day 0 Atorvastatin Calcium take 1 tablet at Unknown 20mg bedtime 0 Tablets Coq10 1 by mouth every Unknown 50mg Capsules day 0 Clindamycin HCL 1 capsule prior to Unknown 300mg dental work 0 Capsules Calcium + D3 1 tablet every Unknown [id number] other day 0 Tablets Vit D q month Unknown 50,0000Iu 0 Glucosamine 2KCL Unknown 0 Omeprazole 1 po qd 180caps Unknown 20mg Capsules DR 0 History Medications Lubricant Eye Drops 1 drop each 30units M35.00 Sil Pascual, 10/10/2018 - (PF) eyes bid SHAHEEN 01/16/2019 0.4-0.3% Solution Immunizations CPT Code Status Date Vaccine Reaction Lot # [id number] Given 06/18/2017 Pneumococcal Conjugate Vaccine no reaciton noted [id number] Valent For Intramuscular Use 53223 Given 11/23/2016 Tdap - [id number] Tetanus/Diptheria/Acellular Pertussis 05445 Given 02/21/2016 Influ Virus Vaccine, [id number] Quadrivalent, Split Virus, [place] [address] Given 02/21/2015 Influenza Virus Vaccine, no reaction noted [id number] Quadrivalent, Split, Preservative Free 65966 Given 02/18/2014 Influenza Virus Vaccine, [id number] Quadrivalent, Split, Preservative Free Vital Signs Date Vital Result Comment 01/16/2019 9:57am Height 63 inches 5'3" Weight 191.12 lb Heart Rate 80 /min BP Systolic 130 mmHg BP Diastolic 75 mmHg Body Temperature 98.3 F O2 % BldC Oximetry 99 % BMI (Body Mass Index) 33.9 kg/m2 10/10/2018 9:59am Height 63 inches 5'3" Weight 187.25 lb Heart Rate 84 /min BP Systolic Sitting 126 mmHg BP Diastolic Sitting 62 mmHg Body Temperature 97.8 F O2 % BldC Oximetry 98 % BMI (Body Mass Index) 33.2 kg/m2 Results Test Date Facility Test Result H/L Range Note CBC Auto 01/15/2019 [facility] White Blood 6.8 10^3/uL Normal 3.5-10.[address] [place] [address] [phone] Red Blood Count 4.26 10^6/uL Normal 3.70-4.87 Hemoglobin 13.1 g/dL Normal 12.0-16.0 Hematocrit 38 % Normal 35-47 Mean Corpuscular Volume 89 fL Normal 80-97 Mean Corpuscular Hemoglobin 31 pg Normal 27-31 Mean Corpuscular HGB Conc 35 g/dL Normal 31-36 Red Cell Distribution Width 13 % Normal 10-15 Platelet Count 187 10^3/uL Normal 150-450 Mean Platelet Volume 8.6 fL Normal 7.4-10.4 Abs Neutrophils 3.5 10^3/uL Normal 1.5-7.7 Abs Lymphocytes 2.5 10^3/uL Normal 1.0-4.8 Abs Monocytes 0.5 10^3/uL Normal 0-0.8 Abs Eosinophils 0.3 10^3/uL Normal 0-0.6 Abs Basophils 0.0 10^3/uL Normal 0-0.2 Abs Nucleated RBC 0.0 10^3/uL Granulocyte % 51.4 % Lymphocyte % 36.4 % Monocyte % 7.8 % Eosinophil % 3.8 % Basophil % 0.6 % Nucleated Red Blood Cells % 0.1 Comp Metabolic 01/15/2019 [facility] Sodium 139 mmol/L Normal 135-[address] [place] [address] [phone] Potassium 4.3 mmol/L Normal 3.5-5.0 Chloride 105 mmol/L Normal 101-111 Co2 Carbon Dioxide 30 mmol/L Normal 22-32 Anion Gap 4 mmol/L Normal 2-11 Glucose 109 mg/dL High 70-100 Blood Urea Nitrogen 19 mg/dL Normal 6-24 Creatinine 0.93 mg/dL Normal 0.51-0.95 BUN/Creatinine Ratio 20.4 High 8-20 Calcium 9.4 mg/dL Normal 8.6-10.3 Total Protein 6.6 g/dL Normal 6.4-8.9 Albumin 4.5 g/dL Normal 3.2-5.2 Globulin 2.1 g/dL Normal 2-4 Albumin/Globulin Ratio 2.1 Normal 1-3 Total Bilirubin 0.70 mg/dL Normal 0.2-1.0 Alkaline Phosphatase 63 U/L Normal 34-104 Alt 55 U/L High 7-52 Ast 39 U/L Normal 13-39 Egfr Non- 61.3 >60 Egfr 74.2 >60 1 Laboratory test 01/15/2019 [facility] C Reactive < 1.00 Normal <8.01 [address] Protein mg/[place] [address] [phone] Erythrocyte Sed Rate 3 mm/Hr Normal 0-29 3 Laboratory test 12/15/2018 [facility] Point of 135 mg/dL High 70-100 [address] [place] [address] [phone] CBC Auto Diff 11/17/2018 [facility] White Blood 7.1 Normal 3.5 -10.[address] Count 10^3/[place] [address] [phone] Red Blood Count 4.47 10^6/uL Normal 3.70-4.87 Hemoglobin 13.6 g/dL Normal 12.0-16.0 Hematocrit 40 % Normal 35-47 Mean Corpuscular Volume 88 fL Normal 80-97 Mean Corpuscular Hemoglobin 31 pg Normal 27-31 Mean Corpuscular HGB Conc 35 g/dL Normal 31-36 Red Cell Distribution Width 13 % Normal 10-15 Platelet Count 217 10^3/uL Normal 150-450 Mean Platelet Volume 9.0 fL Normal 7.4-10.4 Abs Neutrophils 3.7 10^3/uL Normal 1.5-7.7 Abs Lymphocytes 2.6 10^3/uL Normal 1.0-4.8 Abs Monocytes 0.6 10^3/uL Normal 0-0.8 Abs Eosinophils 0.2 10^3/uL Normal 0-0.6 Abs Basophils 0.0 10^3/uL Normal 0-0.2 Abs Nucleated RBC 0.0 10^3/uL Granulocyte % 51.9 % Lymphocyte % 36.2 % Monocyte % 8.4 % Eosinophil % 2.9 % Basophil % 0.6 % Nucleated Red Blood Cells % 0.1 Comp Metabolic 11/17/2018 [facility] Sodium 141 mmol/L Normal 135-[address] [place] [address] [phone] Potassium 4.1 mmol/L Normal 3.5-5.0 Chloride 104 mmol/L Normal 101-111 Co2 Carbon Dioxide 28 mmol/L Normal 22-32 Anion Gap 9 mmol/L Normal 2-11 Glucose 117 mg/dL High 70-100 Blood Urea Nitrogen 19 mg/dL Normal 6-24 Creatinine 0.99 mg/dL High 0.51-0.95 BUN/Creatinine Ratio 19.2 Normal 8-20 Calcium 10.0 mg/dL Normal 8.6-10.3 Total Protein 7.1 g/dL Normal 6.4-8.9 Albumin 4.6 g/dL Normal 3.2-5.2 Globulin 2.5 g/dL Normal 2-4 Albumin/Globulin Ratio 1.8 Normal 1-3 Total Bilirubin 0.80 mg/dL Normal 0.2-1.0 Alkaline Phosphatase 65 U/L Normal 34-104 Alt 45 U/L Normal 7-52 Ast 38 U/L Normal 13-39 Egfr Non- 57.0 >60 Egfr 69.0 >60 5 Laboratory test 11/17/2018 [facility] C Reactive < 1.00 Normal <8.[address] Protein mg/[place] [address] [phone] Erythrocyte Sed Rate 3 mm/Hr Normal 0-29 CBC Auto 09/19/2018 [facility] White Blood 7.2 10^3/uL Normal 3.5-10.[address] [place] [address] [phone] Red Blood Count 4.54 10^6/uL Normal 3.70-4.87 Hemoglobin 13.8 g/dL Normal 12.0-16.0 Hematocrit 40 % Normal 35-47 Mean Corpuscular Volume 89 fL Normal 80-97 Mean Corpuscular Hemoglobin 31 pg Normal 27-31 Mean Corpuscular HGB Conc 34 g/dL Normal 31-36 Red Cell Distribution Width 13 % Normal 10.5-15 Platelet Count 213 10^3/uL Normal 150-450 Mean Platelet Volume 9.1 fL Normal 7.4-10.4 Abs Neutrophils 3.6 10^3/uL Normal 1.5-7.7 Abs Lymphocytes 2.8 10^3/uL Normal 1.0-4.8 Abs Monocytes 0.5 10^3/uL Normal 0-0.8 Abs Eosinophils 0.2 10^3/uL Normal 0-0.6 Abs Basophils 0.0 10^3/uL Normal 0-0.2 Abs Nucleated RBC 0.0 10^3/uL Granulocyte % 50.2 % Lymphocyte % 39.0 % Monocyte % 7.5 % Eosinophil % 2.8 % Basophil % 0.5 % Nucleated Red Blood Cells % 0.1 Comp Metabolic 09/19/2018 [facility] Sodium 141 mmol/L Normal 135-[address] [place] [address] [phone] Potassium 4.2 mmol/L Normal 3.5-5.0 Chloride 104 mmol/L Normal 101-111 Co2 Carbon Dioxide 29 mmol/L Normal 22-32 Anion Gap 8 mmol/L Normal 2-11 Glucose 81 mg/dL Normal 70-100 Blood Urea Nitrogen 21 mg/dL Normal 6-24 Creatinine 0.96 mg/dL High 0.51-0.95 BUN/Creatinine Ratio 21.9 High 8-20 Calcium 10.4 mg/dL High 8.6-10.3 Total Protein 7.2 g/dL Normal 6.4-8.9 Albumin 4.7 g/dL Normal 3.2-5.2 Globulin 2.5 g/dL Normal 2-4 Albumin/Globulin Ratio 1.9 Normal 1-3 Total Bilirubin 0.80 mg/dL Normal 0.2-1.0 Alkaline Phosphatase 60 U/L Normal 34-104 Alt 43 U/L Normal 7-52 Ast 35 U/L Normal 13-39 Egfr Non- 59.1 >60 Egfr 71.5 >60 6 Laboratory test 09/19/2018 [facility] C Reactive < 1.00 Normal <8.[address] Protein mg/[place] [address] [phone] Erythrocyte Sed Rate 3 mm/Hr Normal 0-29 1 Because ethnic data is not always readily available, this report includes an eGFR for both -Americans and non- Americans. The National Kidney Disease Education Program (NKDEP) does not endorse the use of the MDRD equation for patients that are not between the ages of 18 and 70, are , have extremes of body size, muscle mass, or nutritional status, or are non- or non-. According to the National Kidney Foundation, irrespective of diagnosis, the stage of the disease is based on the level of kidney function: Stage Description GFR(mL/min/1.73 m(2)) 1 Kidney damage with normal or decreased GFR 90 2 Kidney damage with mild decrease in GFR 60-89 3 Moderate decrease in GFR 30-59 4 Severe decrease in GFR 15-29 5 Kidney failure <15 (or dialysis) 2 S/O ORDERED 10/10/18 EXPIRES 04/11/19 3 S/O ORDERED 10/10/18 EXPIRES 04/11/19 4 Engineer First Assistant: [id number] 5 Because ethnic data is not always readily available, this report includes an eGFR for both -Americans and non- Americans. The National Kidney Disease Education Program (NKDEP) does not endorse the use of the MDRD equation for patients that are not between the ages of 18 and 70, are , have extremes of body size, muscle mass, or nutritional status, or are non- or non-. According to the National Kidney Foundation, irrespective of diagnosis, the stage of the disease is based on the level of kidney function: Stage Description GFR(mL/min/1.73 m(2)) 1 Kidney damage with normal or decreased GFR 90 2 Kidney damage with mild decrease in GFR 60-89 3 Moderate decrease in GFR 30-59 4 Severe decrease in GFR 15-29 5 Kidney failure <15 (or dialysis) 6 Because ethnic data is not always readily available, this report includes an eGFR for both -Americans and non- Americans. The National Kidney Disease Education Program (NKDEP) does not endorse the use of the MDRD equation for patients that are not between the ages of 18 and 70, are , have extremes of body size, muscle mass, or nutritional status, or are non- or non-. According to the National Kidney Foundation, irrespective of diagnosis, the stage of the disease is based on the level of kidney function: Stage Description GFR(mL/min/1.73 m(2)) 1 Kidney damage with normal or decreased GFR 90 2 Kidney damage with mild decrease in GFR 60-89 3 Moderate decrease in GFR 30-59 4 Severe decrease in GFR 15-29 5 Kidney failure <15 (or dialysis) Procedures Date Code Description Status 10/15/2018 [id number] Bone Mineral Density Test Completed 10/15/2018 [id number] Mammogram Completed 08/23/2015 [id number] Diabetic Retinal Eye Exam Completed 10/02/2014 [id number] Diabetic Retinal Eye Exam Completed 07/21/2014 [id number] Mammogram Completed 01/18/2014 [id number] Mammogram Completed 07/20/2013 [id number] Bone Mineral Density Test Completed 07/20/2013 [id number] Mammogram Completed 12/19/2012 [id number] Diabetic Retinal Eye Exam Completed 10/12/2008 [id number] Diabetic Foot Exam Completed Medical Devices Description No Information Available Encounters Type Date Location Provider Dx Diagnosis Office Visit 10/10/2018 Rheumatology Sil Pascual M06.09 Rheumatoid 10:00a [facility] arthritis w/o rheumatoid factor, multiple sites Z79.899 Other group home (current) drug therapy A69.20 Lyme disease, unspecified M35.00 Sicca syndrome, unspecified H04.129 Dry eye syndrome of unspecified lacrimal gland Assessments Date Code Description Provider 01/16/2019 M06.09 Rheumatoid arthritis without rheumatoid factor, SHAHEEN Allen multiple sit 01/16/2019 Z79.899 Other group home (current) drug therapy SHAHEEN Allen 01/16/2019 N20.0 Calculus of kidney SHAHEEN Allen 01/16/2019 R74.0 Nonspecific elevation of levels of transaminase SHAHEEN Allen and lactic a 10/10/2018 M06.09 Rheumatoid arthritis without rheumatoid factor, Sil Pascual, SHAHEEN multiple sit 10/10/2018 Z79.899 Other group home (current) drug therapy SHAHEEN Allen 10/10/2018 A69.20 Lyme disease, unspecified SHAHEEN Allen 10/10/2018 M35.00 Sicca syndrome, unspecified Sil Pascual, SHAHEEN 10/10/2018 H04.129 Dry eye syndrome of unspecified lacrimal gland SHAHEEN Allen Plan of Treatment Future Appointment(s):04/17/2019 10:30 am - SHAHEEN Allen at [facility]02/23/2019 11:00 am - Duyen Alvarez MD at [facility]01/23/2019 10:30 am - Raúl Ware MD at [facility] [id number] /13/2019 - Maurazafar Pascual, FNPM06.09 Rheumatoid arthritis without rheumatoid factor, multiple sitComments:Please continue on Actemra and HCQ and get labs prior to next visitCall with any increased symptoms or infectionsFollow up:3 month labs agccsK83.899 Other technical services manager (current) drug therapyComments:Please call if have sign or symptoms of infection. Please be sure to get the flu shot late Januaryor early February.N20.0 Calculus of kidneyComments:How to avoid kidney stones:Drink water throughout the day. We recommend about 2.5-3 quarts a day. ingeneral, if your urine is light and clear, you're likely drinking enough water.Eat fewer oxalate-rich foods. These include rhubarb, beets, okra, spinach , Green[place]ic chard, sweet potatoes, nuts, tea, chocolate and soy products.Reduce the amount of salt you eat and choose non-animal protein sources.Continue eating calcium-rich foods, but use caution with calcium supplements. Calcium in food doesn't have an effect on your risk of kidney stones, but calcium supplements have been linked to increased risk of kidney stones. You may reduce the risk by taking supplements with meals. Diets low in calcium can increase kidney stone formation in some people.R74.0 Nonspecific elevation of levels of transaminase and lactic aComments:Slight elevation of one of the liver enzyme caused by some fatty infiltration. Slow weight loss has been shown to reverse this process Functional Status Description No Information Available Mental Status Description No Information Available Referrals Description No Information Available
--- NOTE | 2019-02-03 08:57 | ED ---
Complex/Multi-Sys Presentation - HPI Summary HPI Summary: This pt is a 63 y/o female [place] [facility] [place]o headache, neck pain, myalgia , sore throat, and sinus pain. Pt reports she has had a headache for the past 4 days and had 2 days of neck pain. Denies change of vision or hearing. Pt notes she has been feeling lousy with myalgia, feeling cold and clammy, sore throat, sinus congestion and pain. Denies fever or cough. Pt notes she was cleaning up her parent's house and had dust exposure in the attic. Additionally pt reports nausea and feeling of passing a kidney stone. Pt with hx kidney stones and had lithotripsy with Dr. Zapata in December 2018. She saw Dr. Zapata, urologist, in his office last week on 01/28/19 and had an abd XR. Pt was told by Dr. Zapata that the abd XR showed "there was still a piece of kidney stone left" and was advised to drink a lot of water and follow up. Denies hx of tobacco use. - History Of Current Complaint Chief Complaint: EDGeneral Time Seen by Provider: 02/03/19 08:39 Hx Obtained From: Patient Onset/Duration: Lasting Days, Still Present Timing: Days Severity Currently: Moderate Location: Pain At: - sinus, head, neck Aggravating Factor(s): nothing Alleviating Factor(s): nothing Associated Signs And Symptoms: Positive: Headache, Nausea, Other - POSITIVE: neck pain, myalgia, cough, sinus congestion and pain.. Negative: Fever - Allergies/Home Medications Allergies/Adverse Reactions: Allergies Allergy/AdvReac Type Severity Reaction Status Date / Time methotrexate Allergy GI Upset Verified 02/03/19 08:48 minocycline Allergy Rash Verified 02/03/19 08:48 vaccine adjuvant system, Allergy See Comment Verified 02/03/19 08:48 AS01B liposomal [From Shingrix (PF)] varicella-zoster virus Allergy See Comment Verified 02/03/19 08:48 glycoprotein E, recombinant [From Shingrix (PF)] PMH/Surg Hx/FS Hx/Imm Hx Endocrine/Hematology History: Reports: Hx Diabetes - Type 2 Cardiovascular History: Reports: Hx Hypertension - on medication, Other Cardiovascular Problems/Disorders - High cholesterol Respiratory History: Reports: Hx Sleep Apnea, Other Respiratory Problems/ Disorders - wheezing when ill GI History: Reports: Hx Gastroesophageal Reflux Disease - omeprazole, Hx Hiatal Hernia - history of per pt, Hx Irritable Bowel Denies: Other GI Disorders History: Reports: Hx Kidney Stones - Left kidney stones, Other Problems/ Disorders - Occasional UTI Musculoskeletal History: Reports: Hx Arthritis - Rheumatoid arthritis, Hx Rheumatoid Arthritis, Hx Osteoporosis, Other Musculoskeletal History - Right total hip replacement 1997 Sensory History: Reports: Hx Contacts or Glasses - Glasses, Hx Glaucoma Denies: Hx Hearing Aid Opthamlomology History: Reports: Hx Contacts or Glasses - Glasses, Hx Glaucoma Neurological History: Denies: Hx Seizures, Other Neuro Impairments/Disorders Psychiatric History: Reports: Hx Anxiety - on medication, Hx Depression - on medication - Cancer History Hx Chemotherapy: No Hx Radiation Therapy: No - Surgical History Surgical History: Yes Surgery Procedure, Year, and Place: 12/03/18 LEFT KIDNEY STONE: [place] [facility] [place]. Right Total Hip Replacement 1997. Cholecystectomy 1987 Hx Anesthesia Reactions: Yes - Nausea and vomiting, NO RPBLEMS 12/03/18 Infectious Disease History: No Infectious Disease History: Denies: Traveled Outside the [place] in Last 30 Days - Family History Known Family History: Positive: Other - cancer - Social History Alcohol Use: None Substance Use Type: Reports: None Smoking Status (MU): Never Smoked Tobacco Have You Smoked in the Last Year: No Review of Systems Constitutional: Other - POSITIVE: cold and clammy Negative: Fever Negative: Other - NEGATIVE: visual changes ENT: Other - POSITIVE: sinus pain and congestion Positive: Sore Throat. Negative: Other - NEGATIVE: change in hearing Negative: Cough Positive: Nausea Musculoskeletal: Other - POSITIVE: neck pain Positive: Myalgia Positive: Headache All Other Systems Reviewed And Are Negative: Yes Physical Exam - Summary Physical Exam Summary: Constitutional: Well-developed, Well-nourished, Alert. (-) Distressed Skin: Warm, Dry HENT: Normocephalic; Atraumatic. Normal TMs bilaterally. Tons of mucous pouring down her throat. Tonsils are not enlarged. Maxillary and frontal sinus tenderness described as pressure and congestion. Eyes: Conjunctiva normal Neck: Musculoskeletal ROM normal neck. (-) JVD, (-) Stridor, (-) Tracheal deviation Cardio: Rhythm regular, rate normal, Heart sounds normal; Intact distal pulses; The pedal pulses are 2+ and symmetric. Radial pulses are 2+ and symmetric. Pulmonary/Chest wall: Effort normal. (-) Respiratory distress, (-) Wheezes, (-) Rales Abd: Soft, (-) tenderness, (-) Distension, (-) Guarding, (-) Rebound. Flanks are nontender. No CVA tenderness. Musculoskeletal: (-) Edema. Neuro: Alert, Oriented x3 Psych: Mood and affect Normal Triage Information Reviewed: Yes Vital Signs On Initial Exam: Initial Vitals Temp Pulse Resp BP Pulse Ox 97.4 F 110 16 154/73 95 02/03/19 08:29 02/03/19 08:29 02/03/19 08:29 02/03/19 08:29 02/03/19 08:29 Vital Signs Reviewed: Yes Procedures - Sedation Patient Received Moderate/Deep Sedation with Procedure: No Diagnostics - Vital Signs Vital Signs Temp Pulse Resp BP Pulse Ox 02/03/19 08:29 97.4 F 110 16 154/73 95 - Laboratory Result Diagrams: 02/03/19 09:15 02/03/19 09:15 Lab Statement: Any lab studies that have been ordered have been reviewed, and results considered in the medical decision making process. - Radiology Abdomen XR Radiology Interpretation Completed By: Radiologist Summary of Radiographic Findings: IMPRESSION: Left nephrolithiasis. Dr. Castelan has reviewed this report. - Ultrasound No standard instances Ultrasound Interpretation Completed By: Radiologist Summary of Ultrasound Findings: Renal US IMPRESSION: Bilateral renal cysts. Left nephrolithiasis without hydronephrosis. Dr. Castelan has reviewed this report. - Additional Comments Diagnostic Additional Comments: Abdomen US, as read by radiologist IMPRESSION: 1. Status post cholecystectomy with no intra or extrahepatic biliary ductal dilatation. 2. Hepatic steatosis. Dr. Castelan has reviewed this report. Complex Multi-Symp Course/Dx Assessment/Plan: Pt is a 63 y/o female presenting [place] [facility] [place]/o headache, neck pain, myalgia, sore throat, and sinus pain. Denies fever, cough. Additionally pt reports nausea and feeling of passing a kidney stone. Pt with hx kidney stones and had lithotripsy with Dr. Zapata in December 2018. She saw Dr. Zapata, urologist, in his office last week on 01/28/19 and had an abd XR that showed piece of kidney stone left. In the ED course the pt received lactated ringers, Toradol, Zofran, Pepcid. Her renal US is showing stones but no hydronephrosis, and has bilateral ureteral jets, which means urine flowing into the bladder. Creatinine is good. Low sodium of 132, not different than [address] [place] at. Her bilirubin is significant elevated at 1.6, her transaminases are elevated in 60s. Platelets are significant lower at 67, compared to two weeks ago pt had platelets of 187. UA is contaminated with squamous epithelial cells , shows 2+ protein and 3+ glucose. Abdomen US is normal, pt is post cholecystectomy, no ductal dilatation noted. Discussed the case with Dr. Stafford, infectious disease, who does not think it is a tick borne disease as thrombocytopenia and LFTS should be abnormal without change in bilirubin and patient also does not have neutropenia. Will send flu swab and tick borne panel that does not have to resolve in the ED. Patient is too many days out of the window for Tamiflu and tick borne panel will result in 3 days. Pt will be discharged home with follow up from her PCP. - Diagnoses Provider Diagnoses: Viral syndrome, Thrombocytopenia, Hyperbilirubinemia - Physician Notifications Discussed Care Of Patient With: Jarvis Stafford MD Time Discussed With Above Provider: 11:50 Instructed by Provider To: Other - Discussed with Dr. Stafford, ID, who reports he does not think it is tick borne disease. Discharge ED - Sign-Out/Discharge Documenting (check all that apply): Patient Departure - Discharge home Patient Received Moderate/Deep Sedation with Procedure: No - Discharge Plan Condition: Good Disposition: HOME Patient Education Materials: Viral Syndrome (ED) Referrals: Annia LUNDBERG,Jarvis Saleh [Medical Doctor] - Georgiana Fragoso MD [Primary Care Provider] - - Billing Disposition and Condition Condition: GOOD Disposition: Home - Attestation Statements Document Initiated by Scribe: Yes Documenting Scribe: Carole Hsu Provider For Whom Harish is Documenting (Include Credential): Drew Castelan MD Scribe Attestation: Carole Malin, scribed for Drew Castelan MD on 02/03/19 at 1908. Scribe Documentation Reviewed: Yes Provider Attestation: The documentation as recorded by the Carole davey accurately reflects the service I personally performed and the decisions made by me, Drew Castelan MD Status of Scribe Document: Viewed
[2019-02-03 09:23] LABS: Hematocrit 40 % (35-47); Hemoglobin 14.1 g/dL (12.0-16.0); Mean Corpuscular HGB Conc 35 g/dL (31-36); Mean Corpuscular Hemoglobin 31 pg (27-31); Mean Corpuscular Volume 88 fL (80-97); Red Cell Distribution Width 13 % (10-15); White Blood Count 9.9 10^3/uL (3.5-10.8)
[2019-02-03 09:31] LABS: Urine Appearance Cloudy; Urine Bacteria Absent (Absent); Urine Bilirubin Negative (Negative); Urine Blood Negative (Negative); Urine Color Yellow; Urine Glucose 3+(>=500 mg/dL) (Negative); Urine Ketones Trace (Negative); Urine Nitrite Negative (Negative); Urine Protein 2+(100 mg/dL) (Negative); Urine Red Blood Cell Trace(0-2/hpf) (Absent); Urine Specific Gravity 1.018 (1.010-1.030); Urine Squamous Epithelial Cell Present (Absent); Urine Urobilinogen Negative (Negative); Urine White Blood Cell 1+(6-10/hpf) (Absent)
[2019-02-03 09:44] LABS: Albumin 4.7 g/dL (3.2-5.2); Albumin/Globulin Ratio 1.9 (1-3); BUN/Creatinine Ratio 16.7 (8-20); Calcium 9.7 mg/dL (8.6-10.3); EGFR Non-African American 63.7 (>60); Globulin 2.5 g/dL (2-4); Total Bilirubin 1.6 mg/dL (0.2-1.0); Total Protein 7.2 g/dL (6.4-8.9)
[2019-02-03 10:02] LABS: ABS Lymphocytes 0.3 10^3/ul (1.0-4.8); ABS Monocytes 0.4 10^3/ul (0-0.8); ABS Neutrophils 9.2 10^3/ul (1.5-7.7); Mean Platelet Volume 9.2 fL (7.4-10.4); Platelet Count 67 10^3/uL (150-450)
[2019-02-03 10:15] LABS: Indirect Bilirubin 1.3 mg/dL (0.3-1.0)
[2019-02-03 12:31] VITALS: BP 132/72
[2019-02-03 13:11] LABS: Influenza A Molecular NEGATIVE (Negative); Influenza B Molecular NEGATIVE (Negative)
[2019-02-04 22:08] LABS: Anaplasma phagocytophilum Negative (Negative); B. miyamotoi PCR, B Positive (Negative); Babesia divergens/MO-1 Negative (Negative); Babesia ducani Negative (Negative); Ehrlichia chaffeensis Negative (Negative); Ehrlichia ewingii/canis Negative (Negative); Ehrlichia muris eauclairensis Negative (Negative)
--- NOTE | 2019-02-04 23:13 | PN ---
Progress Note - Progress Note Date of Service: 02/04/19 Note: Received lab results evening of 02/04/19 pertaining to this patient. 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 Attempted to contact patient by phone at 11 PM on 02/04/19. Left a voicemail for patient informing pt lab results from her recent visit to the hospital had returned, and to call back for those results. No information regarding actual results, details of visit, treatment or medication sent to pharmacy was mentioned. Patient called back at 11:35 PM. Patient was informed she was positive for borrelia miyamotoi. Patient stated she had taken doxycycline previously without issue. Prescription for doxycycline 100 mg twice a day by mouth 14 days was sent to her pharmacy. Patient states her symptoms have improved a little but remained persistent.
== END | disposition home or self-care (01) ==
LOC: ED 08:27
DX: B34.9 Viral infection, unspecified (principal); D69.6 Thrombocytopenia, unspecified; E80.6 Other disorders of bilirubin metabolism; N28.1 Cyst of kidney, acquired; N20.0 Calculus of kidney; Z87.442 Personal history of urinary calculi; K76.0 Fatty (change of) liver, not elsewhere classified; A69.20 Lyme disease, unspecified; E11.9 Type 2 diabetes mellitus without complications; I10 Essential (primary) hypertension; K21.9 Gastro-esophageal reflux disease without esophagitis; M06.9 Rheumatoid arthritis, unspecified; F41.9 Anxiety disorder, unspecified; F32.9 Major depressive disorder, single episode, unspecified; Z96.641 Presence of right artificial hip joint; Z90.49 Acquired absence of other specified parts of digestive tract; Z88.1 Allergy status to other antibiotic agents; Z88.7 Allergy status to serum and vaccine; Z88.8 Allergy status to other drugs, medicaments and biological substances
CPT/HCPCS: 36415; 74018; 76705; 76775; 80048; 80076; 81003; 81015; 83690; 85025; 85060; 87086; 87798; 96361; 96374; 96375; 99283; J1885; J2405